=== PATIENT | female | born 1970 | race Caucasian/White ===

== ENCOUNTER 2023-01-18 23:04 | Emergency (ER) | payer MEDICARE, OTHER ==
[2023-01-18 23:46] LABS: BILIRUBIN,URINE NEGATIVE (NEGATIVE); GLUCOSE, URINE (UA) NEGATIVE (NEGATIVE); KETONES,URINE (UA) NEGATIVE (NEGATIVE); LEUKOCYTE ESTERASE, URINE NEGATIVE (NEGATIVE); NITRITE,URINE NEGATIVE (NEGATIVE); OCCULT BLOOD,URINE NEGATIVE (NEGATIVE); PROTEIN,URINE NEGATIVE (NEGATIVE); UROBILINOGEN,URINE 0.2 (NORMAL) E.U./dL (NORMAL)
[2023-01-18 23:54] LABS: CLARITY,URINE CLEAR (CLEAR)
[2023-01-18] MEDS ORDERED: SODIUM CHLORIDE 0.9% 1,000 ML IV STA ×2 (23:55→23:56)
[2023-01-18] MEDS ORDERED: ONDANSETRON 4 MG/2 ML VIAL IVP STA (23:56)
--- NOTE | 2023-01-18 23:58 | ED Physician Documentation ---
PD HPI ABD PAIN - Stated complaint Stated Complaint: LT LOWER ABD PX - Chief complaint Chief Complaint: Abd Pain - History obtained from History obtained from: Patient - Additional information Additional information: Patient is a 52-year-old female presenting for evaluation of left lower quadrant pain that has been present for the past 2 days. She has associated nausea. No radiation to the pain. Nothing makes it better or worse. Denies dysuria or hematuria. Has had kidney stones in the past but reports this feels different. Has had a prior colonoscopy but denies a history of diverticulosis or diverticulitis. No blood in stools. No fever, chest pain or shortness of air. No flank pain. Has had a prior cholecystectomy. Review of Systems Constitutional: denies: Fever Cardiac: denies: Chest pain / pressure Respiratory: denies: Dyspnea GI: reports: Abdominal Pain, Nausea. denies: Vomiting, Diarrhea, Bloody / black stool : denies: Dysuria PD PAST MEDICAL HISTORY - Past Medical History Past Medical History: Yes Cardiovascular: None Respiratory: None Neuro: None Endocrine/Autoimmune: None GI: Other : Kidney stones HEENT: None Psych: Depression Musculoskeletal: None Derm: None - Past Surgical History Past Surgical History: Yes General: Cholecystectomy - Present Medications Home Medications: Ambulatory Orders Medication Instructions Recorded Confirmed Amox/Clav 875/125 [Augmentin] 1 each PO Q12H #20 tablet 01/19/23 HYDROcod/ACETAM 5/325 [[place] 5/325] 1 tablet PO Q6H PRN #12 tablet 01/19/23 Ondansetron Odt [Zofran] 4 mg TL Q6H PRN #10 tablet 01/19/23 - Allergies Allergies/Adverse Reactions: Allergies Allergy/AdvReac Type Severity Reaction Status Date / Time No Known Drug Allergies Allergy Verified 01/18/23 23:22 - Social History Does the pt smoke?: No Smoking Status: Never smoker Does the pt drink ETOH?: No Does the pt have substance abuse?: No - Immunizations Immunizations are current?: Yes - POLST Patient has POLST: No PD ED PE NORMAL - General General: Alert and oriented X 3, No acute distress, Well developed/nourished - HEENT HEENT: Atraumatic, Moist mucous membranes, Pharynx benign - Neck Neck: Supple, no meningeal sign - Cardiac Cardiac: RRR, Strong equal pulses - Respiratory Respiratory: No respiratory distress, Clear bilaterally - Abdomen Abdomen: Normal bowel sounds, Soft, Non distended, Other (LLQ pain; No rebound or guarding) - Derm Derm: Warm and dry - Neuro Neuro: Normal speech Results - Vitals Vitals: Vital Signs - 24 hr 01/18/23 01/18/23 01/19/23 23:10 23:21 02:18 Temperature 36.3 C L Heart Rate 67 67 72 Respiratory 17 17 14 Rate Blood Pressure 140/77 H 140/77 H 133/81 H O2 Saturation 99 99 97 01/19/23 04:00 Temperature Heart Rate 76 Respiratory 14 Rate Blood Pressure 134/100 H O2 Saturation 98 Oxygen O2 Source Room air - Labs Labs: Laboratory Tests 01/18/23 01/19/23 01/19/23 23:20 01:33 01:33 WBC 12.1 H RBC 4.90 Hgb 15.3 Hct 48.5 H MCV 99.0 MCH 31.2 H MCHC 31.5 L RDW 12.7 Plt Count 256 MPV 9.5 Neut # (Auto) 7.0 H Lymph # (Auto) 3.3 Bent # (Auto) 1.3 H Eos # (Auto) 0.3 Baso # (Auto) 0.1 Absolute Nucleated RBC 0.00 Nucleated RBC % 0.0 Sodium 137 Potassium 4.3 Chloride 105 Carbon Dioxide 25 Anion Gap 7.0 BUN 23 H Creatinine 0.8 Estimated GFR (MDRD) 75 L Glucose 81 Calcium 9.0 Total Bilirubin 0.3 AST 17 ALT 13 Alkaline Phosphatase 72 Total Protein 6.6 Albumin 3.8 Globulin 2.8 Albumin/Globulin Ratio 1.4 Lipase 30 Urine Color YELLOW Urine Clarity CLEAR Urine pH 7.0 Ur Specific [place] 1.015 Urine Protein NEGATIVE Urine Glucose (UA) NEGATIVE Urine Ketones NEGATIVE Urine Occult Blood NEGATIVE Urine Nitrite NEGATIVE Urine Bilirubin NEGATIVE Urine Urobilinogen 0.2 (NORMAL) Ur Leukocyte Esterase NEGATIVE Ur Microscopic Review NOT INDICATED Urine Culture Comments NOT INDICATED PD Medical Decision Making - ED course Complexity details: reviewed results, re-evaluated patient, d/w patient ED course: Patient is a 52-year-old female presenting for evaluation of left lower quadrant pain. Has mild tenderness on exam. Vital signs are stable. CBC, chemistry, urine analysis were obtained and reviewed. Mild leukocytosis but otherwise no significant findings. There was a delay initially getting labs which then caused a delay in getting her CT scan. CT of the abdomen and pelvis was obtained with IV contrast which I reviewed and there are findings suggestive of sigmoid diverticulitis which is consistent with patient's presentation here. She has declined pain medications here. She is overall well-appearing, tolerating p.o. and appears appropriate for outpatient management. She is counseled regarding her diagnosis, treatment plan as well as need for follow-up. She is also advised on concerning symptoms to return for. Departure - Departure Disposition: 01 Home, Self Care Clinical Impression: Diverticulitis Condition: Stable Instructions: ED Diverticulitis Prescriptions: Amox/Clav 875/125 [Augmentin] 1 each PO Q12H #20 tablet HYDROcod/ACETAM 5/325 [[place] 5/325] 1 tablet PO Q6H PRN #12 tablet PRN Reason: Pain Ondansetron Odt [Zofran] 4 mg TL Q6H PRN #10 tablet PRN Reason: Nausea / Vomiting Comments: Your testing tonight shows that you have diverticulitis which is an infection in a portion of your intestinal tract. I am starting on an antibiotic and have sent prescriptions for the antibiotic, antinausea medication and pain medication to [facility] in [place]. I am prescribing a short course of narcotic pain medication for you. These are potentially dangerous and addictive medications that should be used carefully. These medications may constipate you. Take an sjsi-nps-emxsziv stool softener (docusate) twice daily with plenty of water while taking these medications. If you go 24 hours without a bowel movement, take igme-[id number]-yntzykl miralax, per package instructions. Do not drink or drive while taking these medications. If you received narcotic or sedating medications while in the emergency department, do not drive for 24 hours. Store this medication in a safe, secure place and out of reach of children. It is a violation of federal law to give or sell this medication to another person or to use in a manner other than prescribed. The ED will not refill narcotic prescriptions, including prescriptions lost or stolen. To dispose of unwanted medications: 1. [facility] at [address] [facility] in [place] has a medication drop box. They accept prescription medications (in pill form) Tuesday through Tuesday 9:00 a.m. to 5:00 p.m. 2. The [facility] [employer] accepts prescription medications (in pill form only) for disposal year round. Call for more information. 3. Contact the [facility] for the next [facility] sponsored prescription drug collection event. , x0102, or x2238; Note that many narcotic pain relievers also contain Tylenol/acetaminophen. Please ensure that your total dose of acetaminophen from all sources does not exceed 3 g (3000 mg) per day. Please have close follow-up with your primary care doctor. Return to the ER with any worsening symptoms such as fever, vomiting or increased pain. Forms: PCP List
[2023-01-19 01:35] LABS: BASOPHILS # (AUTO) 0.1 10^3/uL (0.0-0.1); BASOPHILS % (AUTO) 0.9 %; EOSINOPHILS # (AUTO) 0.3 10^3/uL (0.0-0.7); EOSINOPHILS % (AUTO) 2.8 %; HCT - HEMATOCRIT 48.5 % (37.0-47.0); HGB - HEMOGLOBIN 15.3 g/dL (12.0-16.0); LYMPHOCYTES # (AUTO) 3.3 10^3/uL (1.5-3.5); LYMPHOCYTES % (AUTO) 26.9 %; MEAN CORPUSCULAR HEMOGLOBIN 31.2 pg (27.0-31.0); MEAN CORPUSCULAR HGB CONC 31.5 g/dL (32.0-36.0); MEAN PLATELET VOLUME 9.5 fL (7.9-10.8); MONOCYTES # (AUTO) 1.3 10^3/uL (0.0-1.0); MONOCYTES % (AUTO) 10.3 %; NEUTROPHILS % (AUTO) 57.7 %; PLT - PLATELET COUNT 256 10^3/uL (130-450); RED CELL DISTRIBUTION WIDTH 12.7 % (12.0-15.0); WHITE BLOOD COUNT 12.1 x10^3/uL (4.8-10.8)
[2023-01-19 02:41] LABS: ALBUMIN 3.8 g/dL (3.2-5.5); ALBUMIN/GLOBULIN RATIO 1.4 (1.0-2.2); BILIRUBIN,TOTAL 0.3 mg/dL (0.2-1.0); CREATININE 0.8 mg/dL (0.6-1.3); POTASSIUM 4.3 mmol/L (3.5-4.5); TOTAL PROTEIN 6.6 g/dL (6.4-8.9)
[2023-01-19] MEDS ORDERED: iohexoL-300 100 ML VIAL IVP ONE (04:11)
[2023-01-19] MEDS ORDERED: AMOX/CLAV 875 MG/125 MG TABLET PO STA (05:10)
[2023-01-19 05:24] VITALS: BP 134/100; O2SAT 98
--- NOTE | 2023-01-19 07:52 | CT Report ---
PROCEDURE: ABDOMEN/PELVIS W INDICATIONS: LLQ pain CONTRAST: Omni 300 100ml TECHNIQUE: After the administration of intravenous contrast, 5 mm thick sections acquired from the diaphragms to the symphysis. 5 mm thick coronal and sagittal reformats were acquired. For radiation dose reducti on, the following was used: automated exposure control, adjustment of mA and/or kV according to faustino ent size. COMPARISON: None FINDINGS: Image quality: Excellent. Lung bases and heart: Unremarkable. Bilateral mammoplasties. Liver: No solid mass prominent hemangioma, right lobe, 4.2 cm in maximum diameter.. Gallbladder and biliary tree: Surgically absent. No biliary dilation, accounting for post-cholecystec alecia state. Spleen: No splenomegaly. Pancreas: No pancreatic ductal dilation. Adrenals: No adrenal nodule. Kidneys and ureters: No hydronephrosis. No renal cystic lesion which requires follow up. No solid mas s. Bowel and peritoneum: Diverticulosis is present. There is question inflammatory change, mild, adjacen t to the distal descending colon. Reference image 59 of series 2. Question acute diverticulitis, mild . Normal appendix. Lymph nodes: No central or retroperitoneal adenopathy. Vessels: No infrarenal aortic aneurysm. Dilated, refluxing left gonadal vein noted. PELVIS Reproductive organs: Uterus has an IUD in place. There are uterine fibroids. Note is made of the pres ence of varicosities adjacent to the left ovary, and a dilated refluxing left gonadal vein. Bladder: No abnormal wall thickening, accounting for underdistension. Pelvic lymph nodes: No pelvic adenopathy by size criteria. Bones: No aggressive osseous abnormality. Other: No significant ventral or inguinal hernia. IMPRESSION: 1. Diverticulosis. Question very mild distal descending colonic diverticulitis. 2. There is a dilated refluxing left canal vein. There are associated varicosities in the left adnexa l region. Instrument individual's, this can support a clinical diagnosis of chronic pelvic venous con gestion, a potential cause of left lower quadrant pain. Findings are concordant with preliminary interpretation provided by [facility]. Reviewed by: Levon Hoffman MD on 01/19/2023 7:50 AM PST Approved by: Levon Hoffman MD on 01/19/2023 7:50 AM PST Station ID: [id number]
== END 2023-01-19 05:20 | disposition home or self-care (01) ==
LOC: EDSEX → ED 23:04
DX: K57.32 Diverticulitis of large intestine without perforation or abscess without bleeding (principal)
CPT/HCPCS: 36415; 74177; 80053; 81003; 83690; 85025; 96374; 99284; A9270; Q9967; 81001; 87086

== ENCOUNTER 2023-05-03 14:50 | Outpatient (CLI) | payer MEDICAID, OTHER ==
[2023-05-03 15:17] LABS: BASOPHILS # (AUTO) 0.1 10^3/uL (0.0-0.1); BASOPHILS % (AUTO) 1.1 %; EOSINOPHILS # (AUTO) 0.3 10^3/uL (0.0-0.7); EOSINOPHILS % (AUTO) 2.8 %; HCT - HEMATOCRIT 47.3 % (37.0-47.0); HGB - HEMOGLOBIN 15.8 g/dL (12.0-16.0); LYMPHOCYTES # (AUTO) 2.4 10^3/uL (1.5-3.5); LYMPHOCYTES % (AUTO) 25.7 %; MEAN CORPUSCULAR HEMOGLOBIN 31.6 pg (27.0-31.0); MEAN CORPUSCULAR HGB CONC 33.4 g/dL (32.0-36.0); MEAN CORPUSCULAR VOLUME 94.6 fL (81.0-99.0); MEAN PLATELET VOLUME 9.5 fL (7.9-10.8); MONOCYTES % (AUTO) 10.5 %; NEUTROPHILS # (AUTO) 5.5 10^3/uL (1.5-6.6); NEUTROPHILS % (AUTO) 59.5 %; PLT - PLATELET COUNT 339 10^3/uL (130-450); RED CELL DISTRIBUTION WIDTH 12.6 % (12.0-15.0); WHITE BLOOD COUNT 9.2 x10^3/uL (4.8-10.8)
[2023-05-03 15:47] LABS: ALBUMIN/GLOBULIN RATIO 1.7 (1.0-2.2); BILIRUBIN,TOTAL 0.3 mg/dL (0.2-1.0); CALCIUM 8.8 mg/dL (8.5-10.3); CREATININE 0.9 mg/dL (0.6-1.3); POTASSIUM 3.9 mmol/L (3.5-4.5); TOTAL PROTEIN 6.3 g/dL (6.4-8.9)
[2023-05-03 16:22] LABS: THYROID STIMULATING HORMONE 1.96 uIU/mL (0.34-5.60)
== END 2023-05-03 14:51 | disposition home or self-care (01) ==
LOC: LAB 14:50
PROVIDERS: ATTEND Nurse Practitioner Obstetrics & Gynecology
DX: N95.0 Postmenopausal bleeding (principal)
CPT/HCPCS: 36415; 80053; 83001; 84439; 84443; 85025

== ENCOUNTER 2023-05-10 18:31 | Emergency (ER) | payer MEDICAID ==
--- NOTE | 2023-05-10 21:29 | XRAY Report ---
PROCEDURE: Wrist 3+V RT INDICATIONS: pain/tenderness R WRIST TECHNIQUE: 3 views of the wrist were acquired. COMPARISON: None. FINDINGS: Bones: No fractures or dislocations. No suspicious bony lesions. Soft tissues: No suspicious soft tissue calcifications or masses. IMPRESSION: No acute bony abnormality. If there is anatomic snuff box tenderness, consider wrist immobilization a nd repeat radiographs in 10-14 days or cross-sectional imaging now. If pain persists with conservativ e management, consider repeat radiographs in 10-14 days or cross-sectional imaging. Reviewed by: Ever Smith MD on 05/10/2023 9:28 PM PDT Approved by: Ever Smith MD on 05/10/2023 9:28 PM PDT Station ID: [id number]
--- NOTE | 2023-05-10 21:37 | ED Physician Documentation ---
History of Present Illness - Stated complaint Stated Complaint: RT WRIST PX - Chief complaint Chief Complaint: Ext Problem - Additonal information Additional information: 52-year-old female presents emergency department for chronic right wrist pain. Patient says that she recently moved to the area she saw a hand specialist where she used to live where an ultrasound was complete and they talked about possible surgery. She says that she is not sure what surgery they were going to do but she is worried that she may have reinjured her right wrist while raking today. There is no inflammation or swelling she has full range of motion to the right wrist but she is complaining of pain with any sort of flexion or extension of the right wrist. PD PAST MEDICAL HISTORY - Past Medical History Past Medical History: Yes Cardiovascular: None Respiratory: None Neuro: None Endocrine/Autoimmune: None GI: Other CLINICIAN ONCOLOGY: None : Kidney stones HEENT: None Psych: Depression Musculoskeletal: None Derm: None - Past Surgical History Past Surgical History: Yes General: Cholecystectomy - Present Medications Home Medications: Ambulatory Orders Medication Instructions Recorded Confirmed DULoxetine [Cymbalta] 20 mg PO DAILY 05/10/23 Paliperidone [Invega] 3 mg PO DAILY 05/10/23 - Allergies Allergies/Adverse Reactions: Allergies Allergy/AdvReac Type Severity Reaction Status Date / Time No Known Drug Allergies Allergy Verified 05/10/23 18:55 - Social History Does the pt smoke?: No Smoking Status: Never smoker Does the pt drink ETOH?: No Does the pt have substance abuse?: No - Immunizations Immunizations are current?: Yes - POLST Patient has POLST: No PD ED PE NORMAL - Vitals Vital signs reviewed: Yes - General General: Alert and oriented X 3 - Psych Psych: Normal mood, Normal affect - Free text exam Free text exam: Right wrist: Mild snuffbox tenderness to palpation. Tenderness with flexion extension of the wrist no ecchymosis no abrasions no swelling of the right wrist. No crepitusStrong right radial wrist pulse Results - Vitals Vitals: Vital Signs - 24 hr 05/10/23 05/10/23 18:50 22:20 Temperature 36.9 C 36.7 C Heart Rate 88 89 Respiratory 16 16 Rate Blood Pressure 139/86 H 132/90 H O2 Saturation 96 97 Oxygen O2 Source Room air - Rads (name of study) Right wrist x-rays Relevant Findings:: Final report received, EMP independent interpretation of test, Other (No fractures dislocation or other bony lesion or abnormalities) PD Medical Decision Making - ED course ED course: 52-year-old female presents emergency department for right chronic wrist pain. X-rays were complete and there is no abnormalities visualized. Patient was o ffered a wrist immobilizer here in the emergency department but she says that she has multiple wrist immobilizers at home as this has been chronic issue she has been dealing with for some time now. She said that Tylenol and ibuprofen alleviate the pain at home but she was just curious to make sure that there is no acute changes. Patient was told to follow-up with primary care provider she is working on establishing care with a primary care provider as well as given a local hand specialist to help with deciding next steps. I believe that the pain she is experiencing is due to arthritis there is no erythema or swelling to the right wrist making me concerned about some sort of possible bacterial infection. Return precautions given safer discharge at this time. Departure - Departure Disposition: 01 Home, Self Care Clinical Impression: Right wrist pain Instructions: ED Sprain Wrist Comments: Thank you for trusting us with your care. We have completed x-rays and we are not seeing any acute abnormalities or findings of your right wrist. As we discussed I did put your wrist immobilizer on for couple days and alternate between Tylenol ibuprofen for pain and discomfort as well as apply 20 minutes of ice with 1 hour break in between. Please follow-up with primary care provider I know right now that you are still searching for one of the flexible to expand her search to [place] as well as [place] for a primary care provider. T here is a hand specialist Dr. Padron who is with [facility] who is a wonderful hand surgeon for further evaluation of your right wrist pain. Forms: PCP List Discharge Date/Time: 05/10/23 22:00
[2023-05-10 22:30] VITALS: BP 132/90; O2SAT 97
== END 2023-05-10 22:00 | disposition home or self-care (01) ==
LOC: ED 18:31
DX: M25.531 Pain in right wrist (principal)
CPT/HCPCS: 99283; 99284

== ENCOUNTER 2023-08-29 16:12 | Outpatient (CLI) | payer MEDICAID ==
--- NOTE | 2023-08-29 17:33 | Ultrasound Report ---
PROCEDURE: Pelvic w/Transvaginal INDICATIONS: POST MENOPAUSAL BLEEDING TECHNIQUE: Real-time scanning was performed of the pelvic organs, with image documentation. Additional endovagi nal scanning was necessary due to incomplete visualization of the adnexal and endometrial structures by transabdominal scanning. COMPARISON: CT abdomen and pelvis dated 01/19/2023. FINDINGS: Uterus: Uterus is normal in size at 9.1 x 6.7 x 5.7 cm. The myometrium is heterogeneous. The endom etrium measures 15 mm in combined thickness. An intrauterine device is in place within the endometri al cavity. There is a right posterior subserosal uterine fibroid measuring 3.6 x 3.1 x 3.1 cm. There is a midline anterior intramural uterine fibroid measuring 1.8 x 1.6 x 1.5 cm. There is a midline pos terior subserosal uterine fibroid measuring 1.5 x 1.7 x 1.6 cm. Multiple nabothian cysts are noted wi thin the cervix. Ovaries: The right ovary measures 2.5 x 1.1 x 1.4 cm, with a calculated ovarian volume of 1.9 cc. T he left ovary measures 2.5 x 1.3 x 1.4 cm, with a calculated ovarian volume of 2.5 cc. There is a ane choic focus within the left ovary seen on transabdominal imaging measuring 1.6 cm in size, likely rep resenting a follicle. The ovaries have a normal sonographic appearance. Less than 12 follicles can b e seen in each ovary. No adnexal masses are seen. No cystic lesions measuring greater than 3 cm. Other: No pathologic free abdominal or pelvic fluid. IMPRESSION: Multi fibroid uterus. Intrauterine device visualized within the endometrial cavity. Left ovarian simple cyst likely representing a follicle. Reviewed by: Rohan Mora MD on 08/29/2023 5:31 PM PDT Approved by: Rohan Mora MD on 08/29/2023 5:31 PM PDT Station ID: [id number]
== END 2023-08-29 16:13 | disposition home or self-care (01) ==
LOC: DI 16:12
PROVIDERS: ATTEND Obstetrics & Gynecology
DX: N95.0 Postmenopausal bleeding (principal); Z97.5 Presence of (intrauterine) contraceptive device; D25.2 Subserosal leiomyoma of uterus; D25.1 Intramural leiomyoma of uterus; N88.8 Other specified noninflammatory disorders of cervix uteri; N83.292 Other ovarian cyst, left side

== ENCOUNTER 2023-08-30 08:33 | Day surgery (SDC) | payer MEDICAID ==
[2023-08-30] MEDS: LACTATED RINGERS 1,000 ML IV ONE ×2 (08:37→10:20)
[2023-08-30 08:58] LABS: HCG UR QUAL NEGATIVE
[2023-08-30] MEDS ORDERED: NALOXONE 0.4 MG/ML VIAL IVP PRN (09:25)
[2023-08-30] MEDS ORDERED: ePHEDrine 50 MG/ML VIAL IVP PRN (09:25)
[2023-08-30] MEDS ORDERED: HYDROmorphone 0.5 MG/0.5 ML SYRINGE IVP PRN (09:25)
[2023-08-30] MEDS ORDERED: ONDANSETRON 4 MG/2 ML VIAL IVP PRN ×2 (09:25→10:32)
[2023-08-30] MEDS ORDERED: MORPHINE 2 MG/ML CARPUJECT IVP PRN (09:25)
[2023-08-30] MEDS ORDERED: fentaNYL 100 MCG/2 ML VIAL IVP PRN (09:25)
[2023-08-30] MEDS ORDERED: ATROPINE ABBOJECT 1 MG/10 ML SYRINGE IVP PRN (09:25)
--- NOTE | 2023-08-30 09:25 | ANESTHESIA ---
Pre-Anesthesia VS, & Labs - Diagnosis abnormal uterine bleeding, retained IUD - Procedure hysteroscopy, D&C, removal IUD Vital Signs: Temp Pulse Resp BP Pulse Ox O2 Flow Rate 36.4 C L 63 16 105/69 98 0 08/30/23 08:55 08/30/23 08:55 08/30/23 08:55 08/30/23 08:55 08/30/23 08:55 08/30/23 08:55 Height: 4 ft 11 in Weight (kg): 67 kg Body Mass Index: 29.8 BMI Classification: Overweight - NPO >8 hours - Is Patient ?: No Home Medications and Allergies Home Medications: Ambulatory Orders Alprazolam [Xanax] 2 mg PO DAILY 08/30/23 DULoxetine [Cymbalta] 20 mg PO DAILY 05/10/23 Paliperidone [Invega] 3 mg PO DAILY 05/10/23 Alprazolam [Xanax] 2 mg PO DAILY 08/30/23 Allergies/Adverse Reactions: Allergies Allergy/AdvReac Type Severity Reaction Status Date / Time No Known Drug Allergies Allergy Verified 05/10/23 18:55 Anes History & Medical History - Anesthetic History Anesthesia Complications: reports: No previous complications Family history of Anesthesia Complications: Denies Family history of Malignant Hyperthermia: Denies - Medical History Cardiovascular: reports: None Pulmonary: reports: None Gastrointestinal: reports: Other Urinary: reports: Kidney stones Neuro: reports: None Musculoskeletal: reports: None Endocrine/Autoimmune: reports: None Blood Disorders: reports: None Skin: reports: None Smoking Status: Never smoker - Surgical History General: reports: Cholecystectomy Urologic: reports: Kidney stents Exam General: Alert, Oriented x3, Cooperative Dental: WNL Mouth Openin Fingerbreadth Neck Mobility: Normal Mallampati classification: II Thyromental Distance: 4-6 cm Respiratory: Lungs clear Cardiovascular: Regular rate Plan Anesthesia Type: General Consent for Procedure(s) Verified and Reviewed: Yes Code Status: Attempt Resuscitation ASA classification: 2-Mild systemic disease Is this case an emergency?: No
[2023-08-30] MEDS ORDERED: DEXAMETHASONE 4 MG/ML VIAL ONE (09:27)
[2023-08-30] MEDS ORDERED: fentaNYL 100 MCG/2 ML VIAL ONE (09:27)
[2023-08-30] MEDS ORDERED: LIDOCAINE-PF 2% 10 ML AMP SUBQ ONE (09:27)
[2023-08-30] MEDS ORDERED: ONDANSETRON 4 MG/2 ML VIAL ONE (09:27)
[2023-08-30] MEDS ORDERED: PROPOFOL 200 MG/20 ML VIAL IVP ONE (09:27)
[2023-08-30] MEDS ORDERED: LACTATED RINGERS 1,000 ML IV SCH (10:00)
[2023-08-30] MEDS ORDERED: ePHEDrine 50 MG/ML VIAL IVP ONE (10:02)
[2023-08-30] MEDS ORDERED: oxyCODONE 5 MG TABLET PO PRN (10:32)
--- NOTE | 2023-08-30 10:43 | OPERATIVE REPORT ---
Operative Report - General Procedure Date: 08/30/23 - Procedure Note Estimated Blood Loss (mL): 10 - Other Other Information/Narrative: OPERATIVE NOTE Pre-op Diagnosis: abnormal uterine bleeding, retained Mirena IUD Post-op Diagnosis: IUD removed PROCEDURE: Hysteroscopy with removal of IUD and D&C SURGEON: Marleny Daley MD ANESTHESIA: General with LMA by Edita Phelps CRNA, with student Edith. FINDINGS: There were no palpable adnexal masses on exam under anesthesia. Hysteroscopic findings: IUD seen with entering cervix in canal. String was not visible. Uterine cavity appears normal. Both fimbria seen. INDICATION FOR PROCEDURE: Patient is a 52 yo woman with IUD for many years, now with some irregular bleeding. US with IUD in cavity endometrial cavity. US also showed multiple fibroids, not into cavity. She has some irregular bleeding, last about a month ago. She is here today for D&C and removal of fibroids. DESCRIPTION OF PROCEDURE: The patient was brought to the operating room where general LMA anesthesia was administered. She was prepped and draped in normal sterile fashion with her legs in Miguel stirrups. She had sequential compression devices on her lower extremities. She received no pre-operative antibiotics. Exam under anesthesia was done. Speculum was placed. Cervix was grasped with a tenaculum. ECC was done. The cervix was dilated to allow passage of a 6 mm hysteroscope. This was placed and saline was used as a distending medium, and the cavity was examined with the above findings. Both tubal ostia were visualized. Polyp forceps placed to remove IUD easily. Hysteroscope replaced and initially in a false channel the backed up and normally in cavity. Cavity clean of obvious pathology. Sharp curettage done and procedure finished. FLUID DEFICIT: 100 mL. URINE OUTPUT: None The patient had anesthesia reversed, LMA removed and she was brought to the recovery room in stable condition. She will be discharged home when awake and stable. IVF: 700 cc Specimens: Endometrial and endocervical curettings. Complications: None Counts were correct.
[2023-08-30] MEDS ORDERED: KETOROLAC 15 MG/ML VIAL ONE (10:59)
[2023-08-30] MEDS: KETOROLAC 15 MG/ML VIAL IVP STA (11:03)
[2023-08-30 11:17] VITALS: BP 145/84; O2SAT 97
--- NOTE | 2023-08-30 15:35 | ANESTHESIA POST OP EVALUATION ---
Anesthesia Post Eval - Post Anesthesia Eval Vitals: Last Vital Signs Temp 36.3 C L 08/30/23 11:12 Pulse 69 08/30/23 11:12 Resp 16 08/30/23 11:12 BP 145/84 H 08/30/23 11:12 Pulse Ox 97 08/30/23 11:12 O2 Flow Rate 0 08/30/23 08:55 CV Function Including HR & BP: Stable Pain Control: Satisfactory Nausea & Vomiting: Negative Mental Status: Baseline Respiratory Status: Airway Patent Hydration Status: Satisfactory Anesthesia Complications: None
== END 2023-08-30 08:34 | disposition home or self-care (01) ==
LOC: SDS 08:33
PROVIDERS: ATTEND Obstetrics & Gynecology
PROC: 0UPD8HZ Removal of Contraceptive Device from Uterus and Cervix, Via Natural or Artificial Opening Endoscopic (ICD-10-PCS; 2023-08-30)
PROC: 0UDB8ZZ Extraction of Endometrium, Via Natural or Artificial Opening Endoscopic (ICD-10-PCS; principal; 2023-08-30 09:45)
DX: N93.9 Abnormal uterine and vaginal bleeding, unspecified (principal); T83.89XA Other specified complication of genitourinary prosthetic devices, implants and grafts, initial encounter; N84.1 Polyp of cervix uteri; D25.0 Submucous leiomyoma of uterus; Z87.891 Personal history of nicotine dependence
CPT/HCPCS: 58562; 81025; J7120